=== PATIENT | female | born 1980 | race Caucasian/White ===

== ENCOUNTER 2017-06-24 05:30 | Day surgery (SDC) | payer OTHER ==
[~2017-06-24] VITALS: Ht 160 cm; Wt 84.8 kg
[2017-06-24 06:13] VITALS: BP 161/83
[2017-06-24 09:10] VITALS: BP 143/81
[2017-06-24 10:08] VITALS: BP 148/86
== END 2017-06-24 10:33 | disposition home or self-care (01) ==
LOC: SDC 05:30
PROC: 0UB98ZX Excision of Uterus, Via Natural or Artificial Opening Endoscopic, Diagnostic (ICD-10-PCS; principal; 2017-06-24)
DX: N84.0 Polyp of corpus uteri (principal); N92.0 Excessive and frequent menstruation with regular cycle; Z87.891 Personal history of nicotine dependence
CPT/HCPCS: 88305; J0131; J0690; J1100; J1885; J2250; J2405; J3010